=== PATIENT | female | born 1955 | race Caucasian/White ===

== ENCOUNTER 2022-01-25 13:41 | Emergency (ER) | payer OTHER ==
[2022-01-25] MEDS ORDERED: TORAdol 30 mg Injection IM ONE (14:08)
[2022-01-25] MEDS ORDERED: TORAdol 30 mg Injection ONE (14:11)
[2022-01-25] MEDS ORDERED: ZOFRAN ODT 4 MG PO ONE ×2 (14:40→15:40)
[2022-01-25] MEDS ORDERED: ZOFRAN ODT 4 MG ONE ×2 (14:41→15:40)
--- NOTE | 2022-01-25 15:13 | ERPHSYRPT ---
- History of Present Illness Source: patient Exam Limitations: no limitations Patient Subjective Stated Complaint: Pt has been going to PT for pain in her left shoulder and the pain has become to unbearable and PT sent her to the ER due to not being able to do the physical therapy, pt has been having pain since October Triage Nursing Assessment: Pt brought to the ER by her from PT, hypertensive, rates pain 10/10, decreased ROM, tearful, denies pain with palpat ation, reports having sudden pain without movement and also with movement, pulses normal, skin n/w/d, appears to be in significant pain Physician History: 66 yo wf w chronic L shoulder pain since 11/06 was at PT today and sent to ER because pain was unbearable. She was sent to PT by her orthopod because insurance refused MRI until PT completed. She denies chest pain and dyspnea. Pain worse w L arm movement. Occurred: other (Chronic) Method of Injury: unknown Quality: constant, aching Severity of Pain-Max: severe Severity of Pain-Current: severe Extremities Pain Location: shoulder: left Modifying Factors: Improves With: movement Associated Symptoms: No chest discomfort, No chest pain, No dyspnea, No fever, No jaw pain, No nausea, No neck pain, No sweating, No short of breath, No vomiting Allergies/Adverse Reactions: Iodinated Contrast Media Allergy (Verified 01/25/22 14:14) Penicillins Allergy (Verified 01/25/22 14:14) Home Medications: Amlodipine Besylate 2.5 mg PO DAILY 01/25/22 [History] Fenofibrate,Micronized [Fenofibrate] 54 mg PO DAILY 01/25/22 [History] Hydrocodone/Acetaminophen [Hydrocodone-Acetamin 10-325 mg] 1 tablet PO UD 01/25/22 [History] Levothyroxine Sodium 88 Mcg [Synthroid 88 Mcg] 88 mcg PO DAILY 01/25/22 [History] Omeprazole 20 mg PO DAILY 01/25/22 [History] Ropinirole HCl 4 mg PO DAILY 01/25/22 [History] hydroCHLOROthiazide [Hydrochlorothiazide] 12.5 mg PO DAILY 01/25/22 [History] Travel Risk - International Travel Have you traveled outside of the country in past 3 weeks: No - Coronavirus Screening Are you exhibiting any of the following symptoms?: No - Vaccine Status Have you recieved a Covid-19 vaccination: Yes Supervising Nurse: Moderna - Vaccination Dates Date of 2cond Vaccination (if applicable): 03/2021 - Review of Systems Constitutional: No Symptoms Eyes: No Symptoms Ears, Nose, & Throat: No Symptoms Respiratory: No Symptoms Cardiac: No Symptoms Abdominal/Gastrointestinal: No Symptoms Genitourinary Symptoms: No Symptoms Musculoskeletal: Arthralgias (L shoulder) Skin: No Symptoms Neurological: No Symptoms Psychological: No Symptoms Endocrine: No Symptoms Hematologic/Lymphatic: No Symptoms Immunological/Allergic: No Symptoms - Past Medical History Pertinent Past Medical History: Yes Neurological History: No Pertinent History Cardiac History: No Pertinent History, High Cholesterol Respiratory History: No Pertinent History Endocrine Medical History: Hypothyroidism Musculoskeletal History: No Pertinent History Other Medical History: graves disease, vascular spasms, restless leg syndrome - Past Surgical History Past Surgical History: Yes Gastrointestinal: Cholecystectomy Female Surgical History: Hysterectomy Other Surgical History: rt rotator cuff - Social History Smoking Status: Never smoker Exposure to second hand smoke: No Drug Use: none Patient Lives Alone: No Significant Family History: no pertinent family hx - Nursing Vital Signs Nursing Vital Signs: Initial Vital Signs Temperature 97.5 F 01/25/22 13:52 Pulse Rate 73 01/25/22 13:52 Blood Pressure 158/71 01/25/22 13:52 O2 Sat by Pulse Oximetry 96 01/25/22 13:52 Pain Scale Pain Intensity 10 Hypertensive - Physical Exam General Appearance: no apparent distress Eyes, Ears, Nose, Throat Exam: normal ENT inspection, TMs normal, pharynx normal, moist mucous membranes, tonsillar exudate Neck Exam: normal inspection, non-tender, supple, No Brudzinski, No Kernig's, No meningismus Cardiovascular/Respiratory Exam: normal breath sounds, regular rate/rhythm, heart sounds normal Abdominal Exam: non-tender, soft Back Exam: normal inspection, normal range of motion Shoulder Exam: bone tenderness (L shoulder TTP anteriorly and posteriorly/Pain w abduction and external rotation/Good radial pulse, distal sensation, and capillary return) Elbow/Forearm Exam: normal inspection Wrist Exam: normal inspection Hand Exam: normal inspection DTR - Upper Extremity Exam: bicep (R): 2+, bicep (L): 2+ Neuro/Tendon Exam: normal sensation, normal motor functions, normal tendon functions, responds to pain Mental Status Exam: alert, oriented x 3, cooperative Skin Exam: normal color, warm, dry SpO2 Interpretation: normal SpO2: 96 O2 Delivery: Room Air - Course Nursing assessment & vital signs reviewed: Yes EKG Interpreted by Me: RATE (NSR/R64/Normal QT-QTc/Low voltage/No acute ST segment changes) Ordered Tests: Active Orders 24 hr Category Date Time Status EKG-ER Only STAT Care 01/25/22 14:08 Completed TROPONIN Q3H Lab 01/25/22 14:05 Completed TROPONIN Q3H Lab 01/25/22 17:15 Ordered TROPONIN Q3H Lab 01/25/22 20:15 Ordered TROPONIN Q3H Lab 01/25/22 23:15 Ordered Medication Summary Discontinued Medications Generic Name Dose Route Start Last Admin Trade Name Freq PRN Reason Stop Dose Admin Hydromorphone HCl 1 mg 01/25/22 15:20 01/25/22 15:23 Hydromorphone 1 Mg/1ml Inj 1 Mg/Ml Syringe IM 01/25/22 15:21 1 mg STAT ONE Administration Hydromorphone HCl Confirm 01/25/22 15:20 Hydromorphone 1 Mg/1ml Inj 1 Mg/Ml Syringe Administered 01/25/22 15:21 Dose 1 mg .ROUTE .STK-MED ONE Ketorolac Tromethamine 30 mg 01/25/22 14:08 01/25/22 14:17 Ketorolac Tromethamine 30 Mg/Ml Inj IM 01/25/22 14:09 30 mg STAT ONE Administration Ketorolac Tromethamine Confirm 01/25/22 14:11 Ketorolac Tromethamine 30 Mg/Ml Inj Administered 01/25/22 14:12 Dose 30 mg .ROUTE .STK-MED ONE Ondansetron HCl 4 mg 01/25/22 14:40 01/25/22 14:41 Zofran 4 Mg/Udtablet Orally Disintegrating PO 01/25/22 14:41 4 mg STAT ONE Administration Ondansetron HCl Confirm 01/25/22 14:41 Zofran 4 Mg/Udtablet Orally Disintegrating Administered 01/25/22 14:42 Dose 4 mg .ROUTE .STK-MED ONE Ondansetron HCl 4 mg 01/25/22 15:40 01/25/22 15:42 Zofran 4 Mg/Udtablet Orally Disintegrating PO 01/25/22 15:41 4 mg STAT ONE Administration Ondansetron HCl Confirm 01/25/22 15:40 Zofran 4 Mg/Udtablet Orally Disintegrating Administered 01/25/22 15:41 Dose 4 mg .ROUTE .STK-MED ONE Lab/Rad Data: Laboratory Results 01/25/22 Range/Units 14:05 Troponin I < 0.012 (0.000-0.034) ng/mL - Progress Progress: improved Progress Note: 30mg IM Toradol wo relief Zofran 4mg ODT 1mg IM Dilaudid w mild relief Zofran 4mg odt 01/25/22 16:08 01/25/22 16:09 Counseled pt/family regarding: lab results, diagnosis, need for follow-up - Departure Departure Disposition: Home Clinical Impression: Rotator cuff arthropathy of left shoulder Condition: Stable Critical Care Time: No Referrals: MORIS CARRINGTON [Primary Care Provider] - Follow up/PCP as directed Instructions: Shoulder Tendinopathy (DC) Additional Instructions: Follow up with your orthopedic surgeon on Friday Continue with hydrocodone at home Return to ER for increasing pain, chest pain, or shortness of breath
[2022-01-25] MEDS ORDERED: Hydromorphone 1 mg/ml Injection IM ONE (15:20)
[2022-01-25] MEDS ORDERED: Hydromorphone 1 mg/ml Injection ONE (15:20)
[2022-01-25 16:27] VITALS: BP 162/72; PULSE 76
[2022-01-25 16:39] VITALS: O2SAT 96
== END 2022-01-25 16:27 | disposition home or self-care (01) ==
LOC: ED 13:41
DX: M75.121 Complete rotator cuff tear or rupture of right shoulder, not specified as traumatic (principal); G89.29 Other chronic pain; E78.5 Hyperlipidemia, unspecified; Z79.891 Long term (current) use of opiate analgesic; Z79.899 Other long term (current) drug therapy
CPT/HCPCS: 36415; 84484; 93005; 96372; 99284; J1170; J1885; Q0162

== ENCOUNTER 2023-12-08 12:58 | Emergency (ER) | payer MEDICARE, OTHER ==
--- NOTE | 2023-12-08 13:01 | ERPHSYRPT ---
- History of Present Illness Time Seen by Provider: 12/08/23 13:00 Source: patient, EMS Exam Limitations: no limitations Physician History: This is a morbidly obese 68-year-old white female patient who has chronic insomnia and has not been eating or drinking well recently. She was in the shower and "passed out" hitting her head. She had brief loss of consciousness. Paramedics brought the patient into the emergency department where she is now awake alert and oriented x 4. She feels weak. She denies chest pain. She denies shortness of breath. She has no abdominal pain. She has no extremity pain. Patient has a history of hypertension, dystonic movements, ga stroesophageal reflux disease and hypothyroidism Timing/Duration: today Severity: mild (Moderate) Character of Deficits: none Deficits: no difficulties Baseline/Normal Cognition: alert oriented x 3 Current Cognition: alert oriented x 3 Baseline Gait: walks w/o assistance Associated Symptoms: weakness, insomnia Allergies/Adverse Reactions: Iodinated Contrast Media Allergy (Verified 01/25/22 14:14) Penicillins Allergy (Verified 01/25/22 14:14) Home Medications: Amlodipine Besylate 2.5 mg PO DAILY 01/25/22 [History] Fenofibrate,Micronized [Fenofibrate] 54 mg PO DAILY 01/25/22 [History] Hydrocodone/Acetaminophen [Hydrocodone-Acetamin 10-325 mg] 1 tablet PO UD 01/25/22 [History] Levothyroxine Sodium 88 Mcg [Synthroid 88 Mcg] 88 mcg PO DAILY 01/25/22 [History] Omeprazole 20 mg PO DAILY 01/25/22 [History] Ropinirole HCl 4 mg PO DAILY 01/25/22 [History] hydroCHLOROthiazide [Hydrochlorothiazide] 12.5 mg PO DAILY 01/25/22 [History] Travel Risk - International Travel Have you traveled outside of the country in past 3 weeks: No - Coronavirus Screening Are you exhibiting any of the following symptoms?: No Close contact with a COVID-19 positive Pt in past 14-21 Days: No - Vaccine Status Have you recieved a Covid-19 vaccination: Yes Program Attendant: Moderna - Vaccination Dates Date of 2cond Vaccination (if applicable): 03/2021 - Review of Systems Constitutional: Weakness Eyes: No Symptoms Ears, Nose, & Throat: No Symptoms Respiratory: No Symptoms Cardiac: No Symptoms Abdominal/Gastrointestinal: No Symptoms Genitourinary Symptoms: No Symptoms Musculoskeletal: No Symptoms Skin: No Symptoms Neurological: Headache Psychological: No Symptoms Endocrine: No Symptoms Hematologic/Lymphatic: No Symptoms Immunological/Allergic: No Symptoms All Other Systems: Reviewed and Negative - Past Medical History Pertinent Past Medical History: Yes Neurological History: Migraines Cardiac History: Other Respiratory History: Bronchitis Endocrine Medical History: Hypothyroidism Musculoskeletal History: Other Other Medical History: 1 migraine every 1-2 months, vascular spasms, cardiac catheterization, various broken fingers and toes, nasal fractures, cholecystectomy, hysterectomy, L knee scope - Past Surgical History Past Surgical History: Yes Gastrointestinal: Cholecystectomy Female Surgical History: Hysterectomy Other Surgical History: rt rotator cuff - Social History Smoking Status: Never smoker Exposure to second hand smoke: No Drug Use: none Patient Lives Alone: No Significant Family History: no pertinent family hx - Nursing Vital Signs Nursing Vital Signs: Initial Vital Signs O2 Sat by Pulse Oximetry 97 12/08/23 12:59 Pain Scale Pain Intensity 8 - [place] Coma Scale Best Eye Response (Geoff): (4) open spontaneously Best Verbal Response (Geoff): (5) oriented Best Motor Response (Geoff): (6) obeys commands Geoff Total: 15 - Physical Exam General Appearance: no apparent distress, alert, anxiety, obese Eye Exam: bilateral eye: normal inspection, PERRL, EOMI Ears, Nose, Throat Exam: normal ENT inspection, moist mucous membranes Neck Exam: normal inspection, non-tender, supple, full range of motion Respiratory: normal breath sounds, lungs clear, airway intact, No chest te nderness, No respiratory distress Cardiovascular: regular rate/rhythm, normal heart sounds, normal peripheral pulses Gastrointestinal: soft, normal bowel sounds, No tenderness Pelvic Exam: not done Rectal Exam: not done Back Exam: normal inspection, normal range of motion, No CVA tenderness Extremity Exam: normal inspection, normal range of motion, pelvis stable Mental Status: alert, oriented x 3, 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 Exam: normal hearing, normal speech, PERRL, tongue midline Coordination/Gait: normal finger to nose Motor/Sensory: no motor deficit, no sensory deficit Skin Exam: normal color, warm, dry SpO2 Interpretation: normal O2 Delivery: Room Air - Course Nursing assessment & vital signs reviewed: Yes EKG Interpreted by Me: RATE (63), Sinus Rhythm, Left Lykens Deviation, NORMAL INTERVALS, NORMAL QRS, Other (No acute ischemic changes on today's twelve-lead EKG.) Ordered Tests: Active Orders 24 hr Category Date Time Status Nutrition Services Associate STAT Care 12/08/23 13:14 Active EKG-ER Only STAT Care 12/08/23 13:14 Active IV Insertion STAT Care 12/08/23 13:14 Active Pulse Oximetry (ED) STAT Care 12/08/23 13:14 Active HEAD WITHOUT CONTRAST [CT] Stat Exams 12/08/23 13:17 Completed CBC W DIFF Stat Lab 12/08/23 13:11 Completed CMP Stat Lab 12/08/23 13:11 Completed NT PRO BNPII Stat Lab 12/08/23 13:11 Completed TROPONIN Q4H Lab 12/08/23 13:11 Completed TROPONIN Q4H Lab 12/08/23 17:15 Ordered TROPONIN Q4H Lab 12/08/23 21:15 Ordered TSH [TSH, 3RD Generation] Stat Lab 12/08/23 13:35 Completed UA W/RFX UR CULTURE Stat Lab 12/08/23 14:40 Completed Medication Summary Discontinued Medications Generic Name Dose Route Start Last Admin Trade Name Jamesq PRN Reason Stop Dose Admin Potassium Chloride 20 meq 12/08/23 14:00 12/08/23 14:09 Potassium Chloride Tab 10 Meq Tab PO 12/08/23 14:01 20 meq STAT ONE Administration Potassium Chloride Confirm 12/08/23 14:08 Potassium Chloride Tab 10 Meq Tab Administered 12/08/23 14:09 Dose 20 meq .ROUTE .STK-MED ONE Prochlorperazine Edisylate 5 mg 12/08/23 13:43 12/08/23 14:10 Prochlorperazine Edisylate 10 Mg/2 Ml Vial IV 12/08/23 13:44 5 mg STAT ONE Administration Prochlorperazine Edisylate Confirm 12/08/23 14:08 Prochlorperazine Edisylate 10 Mg/2 Ml Vial Administered 12/08/23 14:09 Dose 10 mg .ROUTE .STK-MED ONE Lab/Rad Data: Laboratory Result Diagrams 12/08/23 13:11 12/08/23 13:11 Laboratory Results 12/08/23 12/08/23 12/08/23 Range/Units Unknown 14:40 13:35 WBC (4.0-10.5) x10^3/uL RBC (4.1-5.4) x10^6/uL Hgb (12.0-16.0) g/dL Hct (35-47) % MCV (78-100) fL MCH (26-32) pg MCHC (32-36) g/dL RDW (11.5-14.0) % Plt Count (150-450) x10^3/uL MPV (7.5-11.0) fL Gran % (36.0-66.0) % Immature Gran % (Auto) (0.00-0.4) % Nucleat RBC Rel Count (0.00-0.1) % Eos # (Auto) (0-0.5) x10^3/uL Immature Gran # (Auto) (0.00-0.03) x10^3u/L Absolute Lymphs (auto) (1.0-4.6) x10^3/uL Absolute Monos (auto) (0.0-1.3) x10^3/uL Absolute Nucleated RBC (0.00-0.01) x10^3u/L Lymphocytes % (24.0-44.0) % Monocytes % (0.0-12.0) % Eosinophils % (0.00-5.0) % Basophils % (0.0-0.4) % Absolute Granulocytes (1.4-6.9) x10^3/uL Basophils # (0-0.4) x10^3/uL Sodium (137-145) mmol/L Potassium (3.5-5.1) mmol/L Chloride (98-107) mmol/L Carbon Dioxide (22-30) mmol/L Anion Gap (5-15) MEQ/L BUN (7-17) mg/dL Creatinine (0.52-1.04) mg/dL Estimated GFR ML/MIN Glucose (74-106) mg/dL Calcium (8.4-10.2) mg/dL Total Bilirubin (0.2-1.3) mg/dL AST (14-36) U/L ALT (0-35) U/L Alkaline Phosphatase (38-126) U/L Troponin I (0.000-0.034) ng/mL NT-Pro-B Natriuret Pep (<300) pg/mL Serum Total Protein (6.3-8.2) g/dL Albumin (3.5-5.0) g/dL Free T4 1.16 (0.78-2.19) ng/dL TSH 3rd Generation 7.990 H (0.47-4.68) mIU/L Urine Color Yellow (Yellow) Urine Appearance Cloudy A (Clear) Urine pH 8.0 (4.6-8.0) Ur Specific [place] 1.020 (1.005-1.030) Urine Protein Trace A (Negative) Urine Glucose (UA) Negative (Negative) mg/dL Urine Ketones Negative (Negative) Urine Blood Negative (Negative) Urine Nitrite Negative (Negative) Urine Bilirubin Negative (Negative) Urine Urobilinogen 0.2 (0.2) mg/dL Ur Leukocyte Esterase Negative (Negative) U Hyaline Cast (Auto) NONE SEEN (0-2) /LPF Urine Microscopic RBC 0-2 (0-5) /HPF Urine Microscopic WBC 3-5 (0-5) /HPF Ur Epithelial Cells Rare (None Seen) /HPF Urine Bacteria None Seen (None Seen) /HPF Urine Culture Reflexed NO (NO) Influenza Type A Ag (NEGATIVE) Influenza Type B Ag (NEGATIVE) RSV (PCR) (NEGATIVE) SARS-CoV-2 (PCR) (NEGATIVE) 12/08/23 12/08/23 12/08/23 Range/Units 13:11 13:11 13:11 WBC (4.0-10.5) x10^3/uL RBC (4.1-5.4) x10^6/uL Hgb (12.0-16.0) g/dL Hct (35-47) % MCV (78-100) fL MCH (26-32) pg MCHC (32-36) g/dL RDW (11.5-14.0) % Plt Count (150-450) x10^3/uL MPV (7.5-11.0) fL Gran % (36.0-66.0) % Immature Gran % (Auto) (0.00-0.4) % Nucleat RBC Rel Count (0.00-0.1) % Eos # (Auto) (0-0.5) x10^3/uL Immature Gran # (Auto) (0.00-0.03) x10^3u/L Absolute Lymphs (auto) (1.0-4.6) x10^3/uL Absolute Monos (auto) (0.0-1.3) x10^3/uL Absolute Nucleated RBC (0.00-0.01) x10^3u/L Lymphocytes % (24.0-44.0) % Monocytes % (0.0-12.0) % Eosinophils % (0.00-5.0) % Basophils % (0.0-0.4) % Absolute Granulocytes (1.4-6.9) x10^3/uL Basophils # (0-0.4) x10^3/uL Sodium 137 (137-145) mmol/L Potassium 3.0 L* (3.5-5.1) mmol/L Chloride 99 (98-107) mmol/L Carbon Dioxide 30 (22-30) mmol/L Anion Gap 10.7 (5-15) MEQ/L BUN 16 (7-17) mg/dL Creatinine 0.82 (0.52-1.04) mg/dL Estimated GFR 78.8 ML/MIN Glucose 101 (74-106) mg/dL Calcium 9.6 (8.4-10.2) mg/dL Total Bilirubin 0.70 (0.2-1.3) mg/dL AST 31 (14-36) U/L ALT 13 (0-35) U/L Alkaline Phosphatase 68 (38-126) U/L Troponin I < 0.012 (0.000-0.034) ng/mL NT-Pro-B Natriuret Pep 65.8 (<300) pg/mL Serum Total Protein 7.7 (6.3-8.2) g/dL Albumin 4.5 (3.5-5.0) g/dL Free T4 (0.78-2.19) ng/dL TSH 3rd Generation (0.47-4.68) mIU/L Urine Color (Yellow) Urine Appearance (Clear) Urine pH (4.6-8.0) Ur Specific [place] (1.005-1.030) Urine Protein (Negative) Urine Glucose (UA) (Negative) mg/dL Urine Ketones (Negative) Urine Blood (Negative) Urine Nitrite (Negative) Urine Bilirubin (Negative) Urine Urobilinogen (0.2) mg/dL Ur Leukocyte Esterase (Negative) U Hyaline Cast (Auto) (0-2) /LPF Urine Microscopic RBC (0-5) /HPF Urine Microscopic WBC (0-5) /HPF Ur Epithelial Cells (None Seen) /HPF Urine Bacteria (None Seen) /HPF Urine Culture Reflexed (NO) Influenza Type A Ag NEGATIVE (NEGATIVE) Influenza Type B Ag NEGATIVE (NEGATIVE) RSV (PCR) NEGATIVE (NEGATIVE) SARS-CoV-2 (PCR) NEGATIVE (NEGATIVE) 12/08/23 Range/Units 13:11 WBC 6.7 (4.0-10.5) x10^3/uL RBC 4.57 (4.1-5.4) x10^6/uL Hgb 13.8 (12.0-16.0) g/dL Hct 41.6 (35-47) % MCV 91.0 (78-100) fL MCH 30.2 (26-32) pg MCHC 33.2 (32-36) g/dL RDW 13.2 (11.5-14.0) % Plt Count 320 (150-450) x10^3/uL MPV 9.0 (7.5-11.0) fL Gran % 55.9 (36.0-66.0) % Immature Gran % (Auto) 1.1 H (0.00-0.4) % Nucleat RBC Rel Count 0.0 (0.00-0.1) % Eos # (Auto) 0.28 (0-0.5) x10^3/uL Immature Gran # (Auto) 0.07 H (0.00-0.03) x10^3u/L Absolute Lymphs (auto) 1.79 (1.0-4.6) x10^3/uL Absolute Monos (auto) 0.70 (0.0-1.3) x10^3/uL Absolute Nucleated RBC 0.00 (0.00-0.01) x10^3u/L Lymphocytes % 26.9 (24.0-44.0) % Monocytes % 10.5 (0.0-12.0) % Eosinophils % 4.2 (0.00-5.0) % Basophils % 1.4 (0.0-0.4) % Absolute Granulocytes 3.73 (1.4-6.9) x10^3/uL Basophils # 0.09 (0-0.4) x10^3/uL Sodium (137-145) mmol/L Potassium (3.5-5.1) mmol/L Chloride (98-107) mmol/L Carbon Dioxide (22-30) mmol/L Anion Gap (5-15) MEQ/L BUN (7-17) mg/dL Creatinine (0.52-1.04) mg/dL Estimated GFR ML/MIN Glucose (74-106) mg/dL Calcium (8.4-10.2) mg/dL Total Bilirubin (0.2-1.3) mg/dL AST (14-36) U/L ALT (0-35) U/L Alkaline Phosphatase (38-126) U/L Troponin I (0.000-0.034) ng/mL NT-Pro-B Natriuret Pep (<300) pg/mL Serum Total Protein (6.3-8.2) g/dL Albumin (3.5-5.0) g/dL Free T4 (0.78-2.19) ng/dL TSH 3rd Generation (0.47-4.68) mIU/L Urine Color (Yellow) Urine Appearance (Clear) Urine pH (4.6-8.0) Ur Specific [place] (1.005-1.030) Urine Protein (Negative) Urine Glucose (UA) (Negative) mg/dL Urine Ketones (Negative) Urine Blood (Negative) Urine Nitrite (Negative) Urine Bilirubin (Negative) Urine Urobilinogen (0.2) mg/dL Ur Leukocyte Esterase (Negative) U Hyaline Cast (Auto) (0-2) /LPF Urine Microscopic RBC (0-5) /HPF Urine Microscopic WBC (0-5) /HPF Ur Epithelial Cells (None Seen) /HPF Urine Bacteria (None Seen) /HPF Urine Culture Reflexed (NO) Influenza Type A Ag (NEGATIVE) Influenza Type B Ag (NEGATIVE) RSV (PCR) (NEGATIVE) SARS-CoV-2 (PCR) (NEGATIVE) - Progress Progress: improved, re-examined Progress Note: 12/08/23 13:39 This patient's medical issue is 1 of moderate complexity. The level of complexity in the workup performed is based on review of the patient's past medical history, review of the patient's medication list, reviewed patient's drug allergy list, history present illness and physical findings on examination. The workup in this patient includes placement of intravenous line, twelve-lead EKG, CBC, CMP, troponin level, BNP, CT scan of the head and urinalysis. 12/08/23 15:15 CT scan of the head without contrast was interpreted by the radiologist and I reviewed the impression. The impression is normal CT scan of the head without contrast. 12/08/23 15:16 I interpreted the patient's laboratory data results. The patient has a low potassium 3.0. We provided her a supplement of 20 mEq potassium orally here in the emergency department. The remainder of her laboratory results are negative for any acute, emergent findings. We will send a prescription remotely to her pharmacy for her to take a couple days of potassium supplementation. Patient was able to ambulate well without any dizziness or difficulty to the restroom and back to her room. Counseled pt/family regarding: lab results, diagnosis, rad results Medical Desision Making - Independent Historian Additional History obtained from: Spouse - Diagnostic Testing Diagnostic test were ordered, analyzed, and reviewed by me: Yes Radiological Interpretation: Reviewed by me, Teleradiologist Report - Risk of complications The pt has a mod risk of morbidity or mortality based on: Need for prescription drug management - Departure Departure Disposition: Home Clinical Impression: Episode of syncope, Insomnia, Hypokalemia Condition: Stable Critical Care Time: No Referrals: IAN CUELLO NP [Primary Care Provider] - Follow up/PCP as directed Additional Instructions: Drink plenty of clear liquids before advancing your diet. Take your medications as prescribed. Follow-up with your primary care provider today, by phone, to make arrangements for further evaluation and management. Prescriptions: Potassium Chloride Tab* [Klor Con] 10 meq PO BID #4 tab
[2023-12-08 13:23] VITALS: TEMP 97
[2023-12-08 13:23] LABS: Absolute Neutrophil Ct (ANC) 3.73 x10^3/uL (1.4-6.9); BASOPHIL % 1.4 % (0.0-0.4); Basophil (Absolute #) 0.09 x10^3/uL (0-0.4); Eosinophil % 4.2 % (0.00-5.0); Eosinophil (Absolute #) 0.28 x10^3/uL (0-0.5); Hematocrit 41.6 % (35-47); Hemoglobin 13.8 g/dL (12.0-16.0); IMMATURE GRAN # 0.07 x10^3u/L (0.00-0.03); IMMATURE GRAN % 1.1 % (0.00-0.4); Lymphocyte (Absolute #) 1.79 x10^3/uL (1.0-4.6); Lymphocytes % 26.9 % (24.0-44.0); Mean Corpuscular Hemoglobin 30.2 pg (26-32); Mean Corpuscular Hgb Concent. 33.2 g/dL (32-36); Monocytes % 10.5 % (0.0-12.0); Neutrophil % 55.9 % (36.0-66.0); Platelet Count 320 x10^3/uL (150-450); Red Blood Count 4.57 x10^6/uL (4.1-5.4); Red Cell Distribution Width 13.2 % (11.5-14.0); White Blood Count 6.7 x10^3/uL (4.0-10.5)
[2023-12-08] MEDS ORDERED: Compazine 10 MG/2 ML IV ONE (13:43)
[2023-12-08 13:46] LABS: ALBUMIN 4.5 g/dL (3.5-5.0); ANION GAP 10.7 MEQ/L (5-15); BILIRUBIN,TOTAL 0.7 mg/dL (0.2-1.3); Calcium 9.6 mg/dL (8.4-10.2); Creatinine 1 0.82 mg/dL (0.52-1.04); EST GLOMERULAR FILTRATION RATE 78.8 ML/MIN; NT PRO BNPII 65.8 pg/mL (<300); Total Protein 7.7 g/dL (6.3-8.2)
[2023-12-08] MEDS ORDERED: Klor Con PO ONE (14:00)
[2023-12-08 14:02] LABS: INFLUENZA A NEGATIVE (NEGATIVE); INFLUENZA B NEGATIVE (NEGATIVE); RESPIRATORY SYNCTIAL VIRUS NEGATIVE (NEGATIVE); SARS-CoV-2 Xpert Express NEGATIVE (NEGATIVE)
[2023-12-08] MEDS ORDERED: Klor Con ONE (14:08)
[2023-12-08] MEDS ORDERED: Compazine 10 MG/2 ML ONE (14:08)
--- NOTE | 2023-12-08 14:15 | XRAY ---
Indication: Syncope. Left posterior pain and knot following fall. Multiple contiguous axial images obtained through the head without contrast. Comparison: None Normal appearing brain parenchyma, ventricles, and bony calvarium for patient's age. Visualized paranasal sinuses and mastoid air cells are clear. Impression: Normal CT head without contrast exam.
[2023-12-08 15:05] LABS: Appearance Cloudy (Clear); Bacteria None Seen /HPF (None Seen); Bilirubin Negative (Negative); Blood Negative (Negative); Epithelial Cells Rare /HPF (None Seen); Glucose, Urine Negative (Negative); Hyaline Casts NONE SEEN /LPF (0-2); Ketones Negative (Negative); Leukocyte Esterase Negative (Negative); Nitrite Negative (Negative); Protein,Urine Dip Trace (Negative); RBC 0-2 /HPF (0-5); Urobilinogen 0.2 mg/dL (0.2)
[2023-12-08 15:08] LABS: ADD URINE CULTURE? NO (NO)
[2023-12-08 15:27] VITALS: BP 119/63; PULSE 65; RESP 17; O2SAT 91
== END 2023-12-08 13:50 | disposition home or self-care (01) ==
LOC: ED 12:58
DX: R55 Syncope and collapse (principal); G47.00 Insomnia, unspecified; E87.6 Hypokalemia; R53.1 Weakness; I10 Essential (primary) hypertension; Z79.899 Other long term (current) drug therapy; Z20.828 Contact with and (suspected) exposure to other viral communicable diseases
CPT/HCPCS: 0241U; 36000; 36415; 70450; 80053; 81001; 83880; 84439; 84443; 84484; 85025; 93005; 93041; 94760; 96374; 99284; A9270-GY

== ENCOUNTER 2024-05-20 08:38 | Emergency (ER) | payer MEDICARE, OTHER ==
[2024-05-20 08:56] VITALS: TEMP 96.1
[2024-05-20] MEDS ORDERED: ZOFRAN ODT 4 MG ONE (09:02)
[2024-05-20] MEDS: ZOFRAN ODT 4 MG PO ONE (09:16)
[2024-05-20] MEDS ORDERED: Zofran 4 MG/2 ML VIAL ONE (10:07)
[2024-05-20] MEDS ORDERED: MORPHINE SULFATE 4 MG INJ ONE (10:07)
[2024-05-20] MEDS ORDERED: Sodium Chloride 0.9% 500 ML 500 ML IV ONE ×3 (10:07→14:06)
[2024-05-20] MEDS: Zofran 4 MG/2 ML VIAL IV ONE (10:08)
[2024-05-20] MEDS: MORPHINE SULFATE 4 MG INJ IV ONE (10:08)
[2024-05-20] MEDS: Sodium Chloride 0.9% 500 ML 500 ML IV ONE ×3 (10:08→14:39)
[2024-05-20 10:23] LABS: Absolute Neutrophil Ct (ANC) 6.41 x10^3/uL (1.56-6.13); BASOPHIL % 0.4 % (0.1-1.2); Basophil (Absolute #) 0.03 x10^3/uL (0.01-0.08); Eosinophil % 0.1 % (0.7-5.8); Eosinophil (Absolute #) 0.01 x10^3/uL (0.04-0.36); Hematocrit 48.9 % (34.1-44.9); Hemoglobin 16.5 g/dL (11.2-15.7); IMMATURE GRAN # 0.02 x10^3u/L (0.001-0.031); IMMATURE GRAN % 0.3 % (0.001-0.429); Lymphocyte (Absolute #) 0.67 x10^3/uL (1.18-3.74); Lymphocytes % 9.3 % (19.3-51.7); Mean Cell Volume 91.2 fL (79.4-94.8); Mean Corpuscular Hemoglobin 30.8 pg (25.6-32.2); Mean Corpuscular Hgb Concent. 33.7 g/dL (32.2-35.5); Mean Platelet Volume 8.7 fL (9.4-12.3); Monocytes % 1.4 % (4.7-12.5); Neutrophil % 88.5 % (34.0-71.1); Platelet Count 346 x10^3/uL (182-369); Red Blood Count 5.36 x10^6/uL (3.93-5.22); Red Cell Distribution Width 13.2 % (11.7-14.4); White Blood Count 7.2 x10^3/uL (3.98-10.04)
[2024-05-20 10:36] LABS: ALBUMIN 4.6 g/dL (3.5-5.0); ANION GAP 15.4 MEQ/L (5-15); Calcium 10.4 mg/dL (8.4-10.2); Creatinine 1 0.97 mg/dL (0.52-1.04); EST GLOMERULAR FILTRATION RATE 64.5 ML/MIN; Total Protein 7.4 g/dL (6.3-8.2)
[2024-05-20 10:39] LABS: Potassium 1.9 mmol/L (3.5-5.1)
[2024-05-20] MEDS ORDERED: Klor Con ONE (11:04)
[2024-05-20] MEDS ORDERED: MAGNESIUM SULF 2 G/50 ML BAG 2 GM/50 ML PIGGYBACK IV ONE (11:05)
[2024-05-20] MEDS ORDERED: POTASSIUM CHLORIDE 20 mEq IN WATER 100ML 100 ML IV ONE ×2 (11:05→13:11)
[2024-05-20] MEDS: MAGNESIUM SULF 2 G/50 ML BAG 2 GM/50 ML PIGGYBACK IV ONE (11:06)
[2024-05-20] MEDS: POTASSIUM CHLORIDE 20 mEq IN WATER 100ML 20 MEQ/100 ML BAG IV SCH (11:06)
[2024-05-20] MEDS: Klor Con PO ONE (11:06)
--- NOTE | 2024-05-20 11:54 | XRAY ---
CLINICAL HISTORY: Generalized abdominal pain, constip COMPARISON: None. TECHNIQUE: A CT scan of the abdomen and pelvis was performed without IV contrast. Coronal and sagittal reconstructive images were also obtained. One of the following dose reduction techniques was utilized for this exam: Automated exposure control, adjustment of the mA and/or kV according to patient size, and use of iterative reconstruction. FINDINGS: Free intraperitoneal gases were detected suggesting a perforated bowel loop. Free fecal material was noted at the rectovesical pouch. There are fat stranding and multiple diverticula, suspicious of diverticulitis. The distal sigmoid and descending colon show mild diffuse wall thickening. Free fluid was noted at subhepatic recess. Multiple colonic diverticula were noted from the cecum to the sigmoid colon. The liver is normal in size. No focal or diffuse parenchymal abnormality. The portal vein, intrahepatic biliary radicals, and the bile ducts are normal. The spleen, pancreas, and adrenal glands are unremarkable. The kidneys are unremarkable. They are normal in size and shape. No calculi or hydronephrosis. The gallbladder is normal. No pericholecystic collection or radio-dense calculi in the gall bladder. A small hiatus hernia was noted. There is no evidence of significant enlargement of the mesenteric or retroperitoneal lymph nodes. The urinary bladder is unremarkable. The pelvic vasculature is unremarkable. No evidence of pelvic lymphadenopathy. The Appendix appears unremarkable. The lumbar spine shows degenerative spondylosis with kyphotic deformity. No lytic or sclerotic bone lesions. Free lung bases. IMPRESSION: 1. Diffuse colonic diverticular disease with evidence of diverticulitis at the sigmoid level, associated pneumoperitonium, and fluid suggesting perforated diverticulitis. 2. Suspicious of free fecal material at the rectovesical pouch, no fistula detected. 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 Anthony Crawford. Electronically Signed by: Evelyn Kim MD. (05/20/2024 11:51:16 EDT)
--- NOTE | 2024-05-20 12:26 | ERPHSYRPT ---
- History of Present Illness Time Seen by Provider: 05/20/24 08:57 Historian: patient, EMS Exam Limitations: no limitations Patient Subjective Stated Complaint: abdominal pain, constipation Triage Nursing Assessment: pt to ED via EMS c/o abdominal pain and cramping, nausea, and constipation. LBM Friday. last PO was last night for dinner. no emesis. bowel sounds hypoactive in all quads. abd firm and nontender. rates 10/10 cramping pain in lower abd that has radiated up to epigastric area. Physician History: 68 years old female with history of hypertension, hypothyroidism, diverticulitis in the past presented in the ER with generalized abdominal pain with cramping since 5 AM. Patient reports she does not have a bowel movement for the last 5 days, took some laxative last night and this morning started cramping. Has nausea and dry heaving without vomiting. Pain is moderate intensity more in the lower abdomen now with no significant aggravating or relieving factors. She does not have any bowel movement despite trying since morning. No fever or chills reported. Allergies/Adverse Reactions: Iodinated Contrast Media Allergy (Verified 05/20/24 08:41) Penicillins Allergy (Verified 05/20/24 08:41) Home Medications: Amlodipine Besylate 2.5 mg PO DAILY 01/25/22 [History] Fenofibrate,Micronized [Fenofibrate] 54 mg PO DAILY 01/25/22 [History] Levothyroxine Sodium 88 Mcg [Synthroid 88 Mcg] 88 mcg PO DAILY 01/25/22 [History] Ropinirole HCl 4 mg PO DAILY 01/25/22 [History] hydroCHLOROthiazide [Hydrochlorothiazide] 12.5 mg PO DAILY 01/25/22 [History] Amitriptyline HCl 50 mg PO DAILY 05/11/24 [History] Aspirin [Low Dose Aspirin EC] 81 mg PO DAILY 05/11/24 [History] Cetirizine HCl [Allergy] 10 mg PO DAILY 05/11/24 [History] Lansoprazole 30 mg PO DAILY 05/11/24 [History] Topiramate 50 mg PO DAILY 05/11/24 [History] Hx Tetanus, Diphtheria Vaccination/Date Given: Yes Hx Influenza Vaccination/Date Given: Yes Hx Pneumococcal Vaccination/Date Given: No Travel Risk - International Travel Have you traveled outside of the country in past 3 weeks: No - Emerging Infectious Disease Are you exhibiting symptoms associated with any current EIDs: Yes Symptoms: Abdominal Pain - Review of Systems Constitutional: No Symptoms Eyes: No Symptoms Ears, Nose, & Throat: No Symptoms Respiratory: No Symptoms Cardiac: No Symptoms Abdominal/Gastrointestinal: Abdominal Pain, Nausea, Constipation Genitourinary Symptoms: No Symptoms Musculoskeletal: Arthralgias Skin: No Symptoms Neurological: No Symptoms Hematologic/Lymphatic: No Symptoms Immunological/Allergic: No Symptoms - Past Medical History Pertinent Past Medical History: Yes Neurological History: Migraines ENT History: No Pertinent History Cardiac History: Hypertension, Other Respiratory History: Bronchitis Endocrine Medical History: Hypothyroidism Musculoskeletal History: Other Other Medical History: 1 migraine every 1-2 months, vascular spasms, cardiac cat heterization, various broken fingers and toes, nasal fractures, cholecystectomy, hysterectomy, L knee scope - Past Surgical History Past Surgical History: Yes Cardiac: Cardiac Catheterization Gastrointestinal: Cholecystectomy Musculoskeletal: Orthopedic Surgery Female Surgical History: Hysterectomy Other Surgical History: rt rotator cuffx2. knee scope Significant Family History: no pertinent family hx - Social History Smoking Status: Never smoker How long have you smoked: 30 Exposure to second hand smoke: No Drug Use: none Patient Lives Alone: No - Social Determinants of Health Will the patient participate in the screening: Yes Do you worry about a steady place to live?: No Do you have any problems with any of the following?: No known problems In the past 12 months,have you had to go without utilities?: No Transportation Issues: No Has anyone in your support network made you feel unsafe?: No Have you or anyone in your house had to go without enough: No - Nursing Vital Signs Nursing Vital Signs: Initial Vital Signs Temperature 96.1 F 05/20/24 08:43 Pulse Rate 66 05/20/24 08:43 Respiratory Rate 22 05/20/24 08:43 Blood Pressure 125/59 05/20/24 08:43 O2 Sat by Pulse Oximetry 98 05/20/24 08:43 Pain Scale Pain Intensity 10 - Physical Exam General Appearance: no apparent distress, alert Eye Exam: PERRL/EOMI Ears, Nose, Throat Exam: normal ENT inspection Neck Exam: normal inspection, full range of motion Respiratory Exam: normal breath sounds, lungs clear Cardiovascular Exam: regular rate/rhythm, normal heart sounds Gastrointestinal/Abdomen Exam: soft, tenderness (Generalized more in the lower abdomen), No normal bowel sounds (Hypoactive bowel sounds) Back Exam: normal inspection, normal range of motion Extremity Exam: normal inspection, normal range of motion Neurologic Exam: alert, oriented x 3, cooperative Skin Exam: normal color SpO2 Interpretation: normal SpO2: 96 O2 Delivery: Room Air Procedures - Central Line Time Of Procedure: 14:50 Timeout: Performed Central Line Lumen: triple Lumen Size: 7 Romansh Central Line Procedure: chlorahexadine prep, sterile drapes applied, sterile dressing applied, Seldinger Technique Central Line Postion: internal jugular (R) Anesthesia: 1% Lidocaine cc's of anesthesia: 3 Ultrasound Guided Placement: Yes Complications: none Central Line Post Position: sutured, good blood return, position confirmed w/ CXR, chest x-ray ordered - Course EKG Interpreted by Me: RATE ([id number]), Sinus Tach, Right [place] Deviation, prolonged QT interval, Non-specific ST Changes Ordered Tests: Active Orders 24 hr Category Date Time Status IV Insertion STAT Care 05/20/24 09:08 Completed NPO (ED) STAT Care 05/20/24 09:08 Completed ABDOMEN AND PELVIS W/0 CONTRAS [CT] Stat Exams 05/20/24 09:08 Completed CHEST 1 VIEW (PORTABLE) Stat Exams 05/20/24 14:57 Completed CHEST 1 VIEW (PORTABLE) Stat Exams 05/20/24 14:57 Completed CBC W DIFF Stat Lab 05/20/24 10:18 Completed CMP Stat Lab 05/20/24 10:18 Completed CULTURE,URINE Stat Lab 05/20/24 12:17 Received LIPASE Stat Lab 05/20/24 10:18 Completed Lactic Acid Stat Lab 05/20/24 13:25 Completed MG [MAGNESIUM] Stat Lab 05/20/24 10:18 Completed UA W/RFX UR CULTURE Stat Lab 05/20/24 12:17 Completed Medication Summary Discontinued Medications Generic Name Dose Route Start Last Admin Trade Name Freq PRN Reason Stop Dose Admin Fentanyl Citrate 50 mcg 05/20/24 12:31 05/20/24 15:07 Fentanyl Citrate 100 Mcg/2 Ml* Vial IV 05/20/24 12:32 Not Given STAT ONE Fentanyl Citrate 25 mcg 05/20/24 15:02 05/20/24 15:07 Fentanyl Citrate 100 Mcg/2 Ml* Vial IV 05/20/24 15:03 25 mcg STAT ONE Administration Fentanyl Citrate Confirm 05/20/24 15:02 Fentanyl Citrate 100 Mcg/2 Ml* Vial Administered 05/20/24 15:03 Dose 100 mcg .ROUTE .STK-MED ONE Sodium Chloride 500 mls @ 500 mls/hr 05/20/24 09:32 05/20/24 13:42 Sodium Chloride 0.9% 500 Ml IV 05/20/24 10:31 Infused .Q1H ONE Infusion Sodium Chloride Confirm 05/20/24 10:07 Sodium Chloride 0.9% 500 Ml Administered 05/20/24 10:08 Dose 500 mls @ ud IV .STK-MED ONE Magnesium Sulfate/Water 2 gm in 50 mls @ 100 mls/hr 05/20/24 10:56 05/20/24 13:42 Magnesium Sulf 2 G/50 Ml Bag IV 05/20/24 11:25 Infused ONCE ONE Infusion Potassium Chloride 20 meq in 100 mls @ 50 mls/hr 05/20/24 11:00 05/20/24 13:12 Potassium Chloride 20 Meq In Water 100ml IV 05/20/24 14:59 50 mls/hr Q2H ASA Administration Magnesium Sulfate/Water Confirm 05/20/24 11:05 Magnesium Sulf 2 G/50 Ml Bag Administered 05/20/24 11:06 Dose 2 gm in 50 mls @ ud IV .STK-MED ONE Sodium Chloride Confirm 05/20/24 11:12 Sodium Chloride 0.9% 500 Ml Administered 05/20/24 11:13 Dose 500 mls @ ud IV .STK-MED ONE Sodium Chloride 500 mls @ 100 mls/hr 05/20/24 11:25 05/20/24 11:26 Sodium Chloride 0.9% 500 Ml IV 05/20/24 16:24 100 mls/hr .Q5H ONE Administration Metronidazole 500 mg in 100 mls @ 200 mls/hr 05/20/24 12:06 05/20/24 15:12 Flagyl 500 Mg Ivpb IV 05/20/24 12:35 Infused STAT STA Infusion Levofloxacin/Dextrose 750 mg in 150 mls @ 100 mls/hr 05/20/24 12:06 05/20/24 15:13 Levofloxacin 750mg/150ml D5w IV 05/20/24 13:35 Infused STAT STA Infusion Sodium Chloride 1,000 mls @ 125 mls/hr 05/20/24 12:15 05/20/24 13:25 Sodium Chloride 0.9% 1000 Ml IV 06/19/24 12:14 125 mls/hr .Q8H ASA Administration Levofloxacin/Dextrose Confirm 05/20/24 12:42 Levofloxacin 750mg/150ml D5w Administered 05/20/24 12:43 Dose 750 mg in 150 mls @ ud IV .STK-MED ONE Meropenem 1 gm/ Sodium 100 mls @ 200 mls/hr 05/20/24 13:57 05/20/24 14:59 Chloride IV 05/20/24 14:26 200 mls/hr STAT ONE Administration Sodium Chloride Confirm 05/20/24 14:06 Sodium Chloride 0.9% 500 Ml Administered 05/20/24 14:07 Dose 500 mls @ ud IV .STK-MED ONE Metronidazole Confirm 05/20/24 14:08 Flagyl 500 Mg Ivpb Administered 05/20/24 14:09 Dose 500 mg in 100 mls @ ud IV .STK-MED ONE Norepinephrine/Dextrose 8 mg in 250 mls @ 15 mls/hr 05/20/24 14:21 05/20/24 14:38 Norepinephrine 8 Mg/250 Ml-D5w IV 06/19/24 14:20 8 mcg/min .[id number] PRN 15 mls/hr HYPOTENSION Administration Protocol 8 MCG/MIN Norepinephrine/Dextrose 8 mg in 250 mls @ 15 mls/hr 05/20/24 14:36 Norepinephrine 8 Mg/250 Ml-D5w IV 06/19/24 14:35 .[id number] PRN HYPOTENSION Protocol 8 MCG/MIN Sodium Chloride 500 mls @ 500 mls/hr 05/20/24 14:39 05/20/24 14:39 Sodium Chloride 0.9% 500 Ml IV 05/20/24 15:38 500 mls/hr .Q1H ONE Administration Sodium Chloride Confirm 05/20/24 14:58 Sodium Chloride 100ml Mini-Bag Plus Administered 05/20/24 14:59 Dose 100 mls @ ud IV .STK-MED ONE Potassium Chloride Confirm 05/20/24 11:05 Potassium Chloride 20 Meq In Water 100ml Administered 05/20/24 11:06 Dose 100 mls @ ud IV .STK-MED ONE Potassium Chloride Confirm 05/20/24 13:11 Potassium Chloride 20 Meq In Water 100ml Administered 05/20/24 13:12 Dose 100 mls @ ud IV .STK-MED ONE Sodium Chloride Confirm 05/20/24 12:50 Sodium Chloride 0.9% 1000 Ml Administered 05/20/24 12:51 Dose 1,000 mls @ ud .ROUTE .STK-MED ONE Sodium Chloride Confirm 05/20/24 13:24 Sodium Chloride 0.9% 1000 Ml Administered 05/20/24 13:25 Dose 1,000 mls @ ud .ROUTE .STK-MED ONE Norepinephrine/Dextrose Confirm 05/20/24 14:23 Norepinephrine 8 Mg/250 Ml-D5w Administered 05/20/24 14:24 Dose 8 mg in 250 mls @ ud IV .STK-MED ONE Meropenem Confirm 05/20/24 14:58 Meropenem 1 Gm Vial Administered 05/20/24 14:59 Dose 1 gm IV .STK-MED ONE Metoclopramide HCl 5 mg 05/20/24 13:41 05/20/24 13:44 Metoclopramide Hcl 10 Mg/2 Ml Vial IV 05/20/24 13:42 5 mg STAT ONE Administration Metoclopramide HCl Confirm 05/20/24 13:44 Metoclopramide Hcl 10 Mg/2 Ml Vial Administered 05/20/24 13:45 Dose 10 mg .ROUTE .STK-MED ONE Morphine Sulfate 4 mg 05/20/24 09:32 05/20/24 10:08 Morphine Sulfate 4 Mg/Ml Injection IV 05/20/24 09:33 4 mg STAT ONE Administration Morphine Sulfate Confirm 05/20/24 10:07 Morphine Sulfate 4 Mg/Ml Injection Administered 05/20/24 10:08 Dose 4 mg .ROUTE .STK-MED ONE Ondansetron HCl Confirm 05/20/24 09:02 Zofran 4 Mg/Udtablet Orally Disintegrating Administered 05/20/24 09:03 Dose 4 mg .ROUTE .STK-MED ONE Ondansetron HCl 4 mg 05/20/24 09:08 05/20/24 10:08 Ondansetron Hcl 4 Mg/2 Ml Vial IV 05/20/24 09:09 4 mg STAT ONE Administration Ondansetron HCl 4 mg 05/20/24 09:14 05/20/24 09:16 Zofran 4 Mg/Udtablet Orally Disintegrating PO 05/20/24 09:15 4 mg STAT ONE Administration Ondansetron HCl Confirm 05/20/24 10:07 Ondansetron Hcl 4 Mg/2 Ml Vial Administered 05/20/24 10:08 Dose 4 mg .ROUTE .STK-MED ONE Potassium Chloride 40 meq 05/20/24 10:56 05/20/24 11:06 Potassium Chloride Tab 10 Meq Tab PO 05/20/24 10:57 40 meq STAT ONE Administration Potassium Chloride Confirm 05/20/24 11:04 Potassium Chloride Tab 10 Meq Tab Administered 05/20/24 11:05 Dose 40 meq .ROUTE .STK-MED ONE Lab/Rad Data: Laboratory Result Diagrams 05/20/24 10:18 05/20/24 10:18 Laboratory Results 05/20/24 05/20/24 05/20/24 Range/Units 13:25 12:17 10:18 WBC (3.98-10.04) x10^3/uL RBC (3.93-5.22) x10^6/uL Hgb (11.2-15.7) g/dL Hct (34.1-44.9) % MCV (79.4-94.8) fL MCH (25.6-32.2) pg MCHC (32.2-35.5) g/dL RDW (11.7-14.4) % Plt Count (182-369) x10^3/uL MPV (9.4-12.3) fL Gran % (34.0-71.1) % Immature Gran % (Auto) (0.001-0.429) % Nucleat RBC Rel Count (0.00-0.2) % Eos # (Auto) (0.04-0.36) x10^3/uL Immature Gran # (Auto) (0.001-0.031) x10^3u/L Absolute Lymphs (auto) (1.18-3.74) x10^3/uL Absolute Monos (auto) (0.24-0.86) x10^3/uL Absolute Nucleated RBC (0.00-0.012) x10^3u/L Lymphocytes % (19.3-51.7) % Monocytes % (4.7-12.5) % Eosinophils % (0.7-5.8) % Basophils % (0.1-1.2) % Absolute Granulocytes (1.56-6.13) x10^3/uL Basophils # (0.01-0.08) x10^3/uL Sodium (135-145) mmol/L Potassium (3.5-5.1) mmol/L Chloride (98-107) mmol/L Carbon Dioxide (22-30) mmol/L Anion Gap (5-15) MEQ/L BUN (7-17) mg/dL Creatinine (0.52-1.04) mg/dL Estimated GFR ML/MIN Glucose (74-106) mg/dL Lactic Acid 4.5 H (0.4-2.0) Calcium (8.4-10.2) mg/dL Magnesium 2.0 (1.6-2.3) mg/dL Total Bilirubin (0.2-1.3) mg/dL AST (14-36) U/L ALT (0-35) U/L Alkaline Phosphatase (38-126) U/L Serum Total Protein (6.3-8.2) g/dL Albumin (3.5-5.0) g/dL Lipase (23-300) U/L Urine Color Dark Yellow A (Yellow) Urine Appearance Cloudy A (Clear) Urine pH 8.5 A (4.6-8.0) Ur Specific [place] 1.015 (1.005-1.030) Urine Protein 30 (Negative) Urine Glucose (UA) Negative (Negative) mg/dL Urine Ketones Negative (Negative) Urine Blood Negative (Negative) Urine Nitrite Negative (Negative) Urine Bilirubin Small A (Negative) Urine Urobilinogen 2.0 A (0.2) mg/dL Ur Leukocyte Esterase Trace A (Negative) U Hyaline Cast (Auto) 3-5 A (0-2) /LPF Urine Microscopic RBC 3-5 (0-5) /HPF Urine Microscopic WBC 0-2 (0-5) /HPF Ur Epithelial Cells Few (None Seen) /HPF Urine Bacteria Rare A (None Seen) /HPF Urine Culture Reflexed YES (NO) 05/20/24 05/20/24 Range/Units 10:18 10:18 WBC 7.2 (3.98-10.04) x10^3/uL RBC 5.36 H (3.93-5.22) x10^6/uL Hgb 16.5 H (11.2-15.7) g/dL Hct 48.9 H (34.1-44.9) % MCV 91.2 (79.4-94.8) fL MCH 30.8 (25.6-32.2) pg MCHC 33.7 (32.2-35.5) g/dL RDW 13.2 (11.7-14.4) % Plt Count 346 (182-369) x10^3/uL MPV 8.7 L (9.4-12.3) fL Gran % 88.5 H (34.0-71.1) % Immature Gran % (Auto) 0.3 (0.001-0.429) % Nucleat RBC Rel Count 0.0 (0.00-0.2) % Eos # (Auto) 0.01 L (0.04-0.36) x10^3/uL Immature Gran # (Auto) 0.02 (0.001-0.031) x10^3u/L Absolute Lymphs (auto) 0.67 L (1.18-3.74) x10^3/uL Absolute Monos (auto) 0.10 L (0.24-0.86) x10^3/uL Absolute Nucleated RBC 0.00 (0.00-0.012) x10^3u/L Lymphocytes % 9.3 L (19.3-51.7) % Monocytes % 1.4 L (4.7-12.5) % Eosinophils % 0.1 L (0.7-5.8) % Basophils % 0.4 (0.1-1.2) % Absolute Granulocytes 6.41 H (1.56-6.13) x10^3/uL Basophils # 0.03 (0.01-0.08) x10^3/uL Sodium 137 (135-145) mmol/L Potassium 1.9 L* (3.5-5.1) mmol/L Chloride 98 (98-107) mmol/L Carbon Dioxide 25 (22-30) mmol/L Anion Gap 15.4 H (5-15) MEQ/L BUN 16 (7-17) mg/dL Creatinine 0.97 (0.52-1.04) mg/dL Estimated GFR 64.5 ML/MIN Glucose 165 H (74-106) mg/dL Lactic Acid (0.4-2.0) Calcium 10.4 H (8.4-10.2) mg/dL Magnesium (1.6-2.3) mg/dL Total Bilirubin 1.00 (0.2-1.3) mg/dL AST 36 (14-36) U/L ALT 21 (0-35) U/L Alkaline Phosphatase 92 (38-126) U/L Serum Total Protein 7.4 (6.3-8.2) g/dL Albumin 4.6 (3.5-5.0) g/dL Lipase 94 (23-300) U/L Urine Color (Yellow) Urine Appearance (Clear) Urine pH (4.6-8.0) Ur Specific [place] (1.005-1.030) Urine Protein (Negative) Urine Glucose (UA) (Negative) mg/dL Urine Ketones (Negative) Urine Blood (Negative) Urine Nitrite (Negative) Urine Bilirubin (Negative) Urine Urobilinogen (0.2) mg/dL Ur Leukocyte Esterase (Negative) U Hyaline Cast (Auto) (0-2) /LPF Urine Microscopic RBC (0-5) /HPF Urine Microscopic WBC (0-5) /HPF Ur Epithelial Cells (None Seen) /HPF Urine Bacteria (None Seen) /HPF Urine Culture Reflexed (NO) - Progress Progress: improved, pain not gone completely Progress Note: 05/20/24 12:31 68 years old is evaluated in the ER for abdominal pain with questionable co nstipation. Started to have worsening of cramping after taking laxative last night. Patient has nausea and dry heaving but no vomiting. Has a hypoactive bowel sounds. Diffuse tenderness more in the lower abdomen. She is given fluids and symptomatic treatment, on reevaluation she is feeling better but still not completely resolved. Workup showed normal white count, fairly unremarkable chemistries except for potassium of 1.9, given oral and IV replacement and also given [address] abdomen pelvis without contrast showed diffuse diverticular disease with diverticulitis and pneumoperitoneum suggesting perforation. Discussed with Dr. Boss general surgeon on-call who has seen patient and recommended continue with IV antibiotics, fluids, n.p.o. and admission to the hospital service in consultation with general surgery. Discussed the results of workup, plan of management and admission with patient and family who understand and agree. 05/20/24 14:12 While in the ER patient blood pressure was dropping in 70s, was tachycardic in 110s with increasing pain and some abdominal distention and more guarding. Patient is given full sepsis bolus of fluid but still blood pressure 90/50. Discussed with Dr. Emmett Boss, reviewed history, workup and current vitals and worsening of condition, recommended transfer to facility with ICU services as patient possible postop need pressor. Also given a dose of meropenem. I have discussed with patient and family and they prefer to go to [facility]. I have discussed with Dr. Jimenez hospitalist and Dr. Rao general surgeon from [facility], reviewed history, workup and patient is accepted for transfer. 05/20/24 14:22 Levophed ordered because blood pressure dropping in 60s. 05/20/24 14:50 Patient is started on Levophed 8 mics, pressure improved to 111/56. Central line is placed. Discussed with Dr.: Tyler Garcia Will see patient in: hospital (observation) Counseled pt/family regarding: lab results, diagnosis, rad results Medical Desision Making - Independent Historian Additional History obtained from: Spouse, Joy Operator Helper/EMT - Discussion of managment Care discussed with:: specialist (General surgeon Dr. Kervin Boss, hospitalist Dr. Martinez) Reviewed:: Test results Agreed on:: Treatment plan, place in obs Will see patient: in hospital - Diagnostic Testing Diagnostic test were ordered, analyzed, and reviewed by me: Yes Radiological Interpretation: Reviewed by me, Teleradiologist Report - Risk of complications The pt has a mod risk of morbidity or mortality based on: Need for prescription drug management The pt has a high risk of morbidity or mortality based on: Decision regarding hospitilization or escalation of hosp level of care - Departure Departure Disposition: Transfer Clinical Impression: Diverticulitis of colon with perforation, Hypokalemia, Hypotension Condition: Fair Critical Care Time: Yes Critical Care Time(excluding separately billable procedures): Critical 75-104 mins Referrals: IAN CUELLO, HOP FARMER [Primary Care Provider] - Follow up/PCP as directed
[2024-05-20] MEDS ORDERED: LEVOFLOXACIN 750MG/150ML D5W 750 MG/150 ML BAG IV ONE (12:42)
[2024-05-20] MEDS: LEVOFLOXACIN 750MG/150ML D5W 750 MG/150 ML BAG IV STA (12:45)
[2024-05-20] MEDS ORDERED: Sodium Chloride 0.9% 1000 ML 1,000 ML ONE ×2 (12:50→13:24)
[2024-05-20 13:05] LABS: Appearance Cloudy (Clear); Bacteria Rare /HPF (None Seen); Bilirubin Small (Negative); Blood Negative (Negative); Epithelial Cells Few /HPF (None Seen); Glucose, Urine Negative (Negative); Ketones Negative (Negative); Leukocyte Esterase Trace (Negative); Nitrite Negative (Negative); Ph 8.5 (4.6-8.0); Protein,Urine Dip 30 (Negative); Specific Gravity 1.015 (1.005-1.030); WBC 0-2 /HPF (0-5)
[2024-05-20 13:06] LABS: ADD URINE CULTURE? YES (NO)
[2024-05-20] MEDS: Sodium Chloride 0.9% 1000 ML 1,000 ML IV SCH (13:25)
[2024-05-20] MEDS ORDERED: Reglan 10 MG/2 ML ONE (13:44)
[2024-05-20] MEDS: Reglan 10 MG/2 ML IV ONE (13:44)
[2024-05-20] MEDS ORDERED: FLAGYL 500 MG IVPB 500 MG/100 ML BAG IV ONE (14:08)
[2024-05-20] MEDS: FLAGYL 500 MG IVPB 500 MG/100 ML BAG IV STA (14:09)
[2024-05-20] MEDS ORDERED: NOREPINEPHRINE 8 MG/250 ML-D5W 8 MG/250 ML PLAST..BAG IV ONE (14:23)
[2024-05-20 14:36] VITALS: RESP 17
[2024-05-20] MEDS ORDERED: NOREPINEPHRINE 8 MG/250 ML-D5W 8 MG/250 ML PLAST..BAG IV PRN (14:36)
[2024-05-20] MEDS: NOREPINEPHRINE 8 MG/250 ML-D5W 8 MG/250 ML PLAST..BAG IV PRN (14:38)
[2024-05-20] MEDS ORDERED: Sodium Chloride 100ML MINI-BAG PLUS 100 ML IV ONE (14:58)
[2024-05-20] MEDS ORDERED: Merrem IV ONE (14:58)
[2024-05-20] MEDS: Merrem 1 GM in Sodium Chloride 100ML MINI-BAG PLUS 100 ML IV ONE (14:59)
[2024-05-20] MEDS ORDERED: SUBLIMAZE 100 MCG/2 ML ONE (15:02)
[2024-05-20] MEDS: SUBLIMAZE 100 MCG/2 ML IV ONE ×2 (15:07)
[2024-05-20 15:09] VITALS: BP 100/45; PULSE 112
--- NOTE | 2024-05-20 16:04 | XRAY ---
CLINICAL HISTORY: cvc placement/ ngt COMPARISON: None. TECHNIQUE: Chest X-ray was performed in 1 view: AP view. FINDINGS: Rotation of the patient is noted on the left side. Cardiac silhouette appears unremarkable. Haziness is noted in bilateral costophrenic angles suggesting pleural thickening / minimal effusion. Atelectasis is noted in the left lung base. A right sided central venous line is noted. The tip is noted in the lower SVC/right atrium junction. Malplaced NGT is noted in the mid line thorax coiling and looping back in the chest. Needs readjustment. IMPRESSION: Haziness is noted in bilateral costophrenic angles suggesting pleural thickening / minimal effusion. Atelectasis is noted in the left lung base. A right sided central venous line is noted. The tip is noted in the lower SVC/right atrium junction. Malplaced NGT is noted in thorax coiling and looping back in the chest. Needs replacement. 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 Electronically Signed by: Evelyn Kim MD. (05/20/2024 16:01:19 EDT)
--- NOTE | 2024-05-20 19:14 | XRAY ---
Indication: Central venous catheter and NG tube placement. Comparison: May 25, 2012 Portable chest demonstrates new right jugular central venous access catheter with tip projecting over SVC without pneumothorax. New NG tube with distal tube folded over with tip projecting over [place]. Follow up CXR demonstrates readjustment. New left lung base infiltrate/atelectasis. Remaining heart and right lung unremarkable. Bony thorax intact.
[2024-05-20 22:30] VITALS: O2SAT 96
--- NOTE | 2024-05-21 09:56 | CONS ---
HISTORY: Patient was seen and examined in the emergency room. I was called about 20 minutes earlier. She had already been seen by the emergency room physician. I saw her in room 7. She is lying on her left side down, right side up. She has her arm under her head. She looks like she is in some pain. She had a shot of morphine. She is still having some discomfort. She says it is better although it did not totally take the edge off. Today is May 20 at noon, 12:30. She was okay Friday. She had her last bowel movement on Friday, but she did not have a bowel movement Friday, Friday, Friday. She is obstipated. She took a laxative Friday and then subsequently developed cramping, and then subsequently, she developed pain. Now her cramping is better. The pain has gone from down in the pelvis to up in the abdomen a little bit and has gotten a little better. She is still lying still, left side down. Her white count is normal. Her CT scan shows free air. It does not show free fluid. She thinks she has been told that she had diverticulitis in the past, although I do not think she has been hospitalized for such. I did not ask her about any recent colonoscopic examination. PAST MEDICAL HISTORY: She has been in reasonable health. She has had some issues. She currently has had some imbalance. She was seeing a neurologist. She flunked a tilt table test. She has been referred to the paper machine operator, Dr. Sullivan, for evaluation. She said she had some type of angina in the past that was controlled by medications. She has not had heart stents. She has had not had an open heart. PAST SURGICAL HISTORY: She has had a shoulder repair. She has had a hysterectomy. She has had a cholecystectomy. LAB DATA AND TESTS: Her white count is noted. Her potassium 1.9. PHYSICAL EXAMINATION: GENERAL: She is alert and oriented and answers questions appropriately and well. Her is present in a chair in the room. ABDOMEN: Moderately distended. It is mildly tender. IMPRESSION: She is having some antibiotics, Cipro and Flagyl started immediately. She has had some IV fluids. She is going to get additional IV fluids and potassium. It looks like she could be admitted here to the hospital, so thus consulted. Initially,this is perforation with microperforation and free air. No free fluid. She did have a void. As a matter of fact, she has voided several times, so I do not think she is undergoing any issue there. She basically has diverticulitis with a microperforation and, as yet, not totally known clinical course. We will check back on her in a few hours. As noted, she is going to change her pain medicine from morphine to Dilaudid. She is going to continue to get IV fluids. She is going to get potassium resuscitation. She is going to get IV antibiotics, and she is going to get vital sign reassessment by the nursing staff along with measurement of urine output. Discussion with both the patient and the that if we operate upfront we usually do a colostomy. If we can nurse this along, we could see if we do not have to operate. Sometimes abscesses and collections we can drain by Interventional Radiology. Sometimes, there is no residual collections at all. It is certainly not written in stone that we absolutely would have to operate on her, but if her clinical course deteriorates, we will have to operate on her.
== END 2024-05-20 15:15 | disposition short-term general hospital (02) ==
LOC: ED 08:38
DX: K57.20 Diverticulitis of large intestine with perforation and abscess without bleeding (principal); E87.6 Hypokalemia; I95.9 Hypotension, unspecified; R10.84 Generalized abdominal pain; R11.2 Nausea with vomiting, unspecified; I10 Essential (primary) hypertension; Z79.899 Other long term (current) drug therapy
CPT/HCPCS: 36415; 36556; 51702; 71045; 74176; 80053; 81001; 83605; 83690; 83735; 85025; 87077; 87086; 87186; 96365; 96367; 96374; 96375; 99285; 99291; J1956; J2270; J2405; J3010; J3480; Q0162; A9270-GY; J3475

== ENCOUNTER 2024-10-04 10:57 | Emergency (ER) | payer MEDICARE, OTHER ==
--- NOTE | 2024-05-31 08:06 | HP ---
HISTORY OF PRESENT ILLNESS: The patient is a 68-year-old who had a lot of reflux, unresolved with proton pump inhibitors. No specific food triggers. Sleeps upright at this time. No prior upper endoscopy. Needs upper endoscopy to evaluate for peptic ulcer disease, gastritis, esophagitis, or other etiology. PAST MEDICAL HISTORY: Hyperlipidemia. Has headaches and migraines in the past. Restless leg syndrome, hypothyroidism, reflux, and hypertension. HOME MEDICATIONS: [id number] allergy medication, fenofibrate, aspirin, allopurinol, nortriptyline, topiramate, hydrochlorothiazide, lansoprazole, amlodipine, levothyroxine. ALLERGIES: Iodine and penicillin. SOCIAL HISTORY: No smoking or alcohol abuse. FAMILY HISTORY: Renal cancer and diabetes. PAST SURGICAL HISTORY: Had cholecystectomy, hysterectomy, cardiac catheterization, knee scope in the past, rotator cuff surgery in the past. REVIEW OF SYSTEMS: Twelve systems reviewed. No chest pain or palpitations. Other systems negative or noncontributory as above and per preadmission questionnaire. PHYSICAL EXAMINATION: VITAL SIGNS: Height 5 feet 8 inches. BMI 33.45. GENERAL: No acute distress. HEENT: Sclerae nonicteric. Extraocular movements intact. NECK: No JVD. CHEST: Equal excursion, nonlabored breathing. CARDIOVASCULAR: Regular rate and rhythm. ABDOMEN: Soft. EXTREMITIES: No cyanosis or edema. NEUROLOGIC: Alert and oriented, moving all extremities symmetrically. PSYCHIATRIC: Appropriate mood and affect. SKIN: Dry. IMPRESSION: Increased reflux despite proton pump inhibitor, in need of EGD with possible biopsy. Risks explained in detail including but not limited to bleeding or infection, risk of bowel injury or perforation, risk of missed or nondiagnosis or incomplete exam possibly requiring barium swallow or other studies or procedures, general risk of anesthesia, risk of sedation, risk of bowel prep but not limited to. Will proceed with outpatient EGD with possible biopsy. Otherwise, continue medication for reflux, hypertension, migraines, lipids, hypothyroidism, and restless leg syndrome.
--- NOTE | 2024-10-04 07:52 | HP ---
HISTORY OF PRESENT ILLNESS: A 69-year-old who apparently had a perforated bowel back in May at [facility], diverticular disease. Last colonoscopy 10 years ago. Family history is negative for colon cancer. She has had a history of some reflux. She is scheduled for an upper endoscopy, prior perforation with bowel, EGD to evaluate for gastritis, esophagitis, for peptic ulcer disease, as well as colonoscopy. PAST MEDICAL HISTORY: Reflux, heartburn, history of headaches, hypothyroidism, history of some heart disease. PAST SURGICAL HISTORY: Had cholecystectomy, hysterectomy, colon resection, cardiac catheter, rotator cuff surgery. FAMILY HISTORY: Negative for colon cancer. History of heart attack, renal cancer, and stroke in the family. SOCIAL HISTORY: No smoking. No alcohol abuse. MEDICATIONS: MiraLAX, potassium chloride, Ropinirole, amitriptyline, Omeprazole, furosemide, levothyroxine, topiramate, Colace. ALLERGIES: Iodine and Penicillin. REVIEW OF SYSTEMS: Twelve systems reviewed. No chest pain or palpitations. Other systems negative or noncontributory as above and per preadmission questionnaire. Does have some chronic constipation. PHYSICAL EXAMINATION: GENERAL: Height 5 feet 8 inches. BMI 29.8. No acute distress. HEENT: Sclerae nonicteric. Extraocular movements intact. NECK: No JVD. CHEST: Equal excursion, nonlabored breathing. CARDIOVASCULAR: Regular rate and rhythm. ABDOMEN: Soft. EXTREMITIES: No cyanosis or edema. NEUROLOGIC: Alert and oriented. Moving all extremities symmetrically. PSYCHIATRIC: Appropriate mood and affect. SKIN: Dry. RECTAL: Deferred until time of endoscopy exam. IMPRESSION: Needs colonoscopy screening prior to patient possibly considering ostomy takedown down the road. She needs EGD to evaluate for increased reflux. Risks explained in detail to include bleeding; infection; risk of bowel injury; perforation, risk of misdiagnosis or incomplete exam; barium enema; possible need for further procedure or referral; risk of sedation or anesthesia; risk of bowel prep but not limited to. We will proceed with outpatient colonoscopy and EGD under MAC anesthesia. Otherwise, continue medications for reflux disease, thyroid disease, headaches, coronary artery disease. The patient understands and agrees to planned procedure.
[2024-10-04 08:45] LABS: ALBUMIN 4.6 g/dL (3.5-5.0); ANION GAP 14.8 MEQ/L (5-15); BILIRUBIN,TOTAL 0.6 mg/dL (0.2-1.3); Creatinine 1 0.85 mg/dL (0.52-1.04); Total Protein 8.2 g/dL (6.3-8.2)
[2024-10-04 08:50] LABS: Potassium 2.7 mmol/L (3.5-5.1)
--- NOTE | 2024-10-04 09:16 | XRAY ---
Indication: Preop exam. Comparison: May 20, 2024 PA/lateral chest demonstrates new mild bibasilar discoid atelectasis/scarring. No focal infiltrate, consolidation, or large effusion. Heart not enlarged. Bony thorax intact again with osteopenia and mild degenerative changes. Impression: Nonacute chest with chronic features.
[2024-10-04 11:26] VITALS: TEMP 97.6
[2024-10-04] MEDS ORDERED: POTASSIUM CHLORIDE 20 mEq IN WATER 100ML 100 ML IV ONE ×2 (12:33→15:13)
[2024-10-04] MEDS ORDERED: Klor Con ONE (12:33)
[2024-10-04] MEDS: Klor Con PO ONE (12:34)
[2024-10-04] MEDS: POTASSIUM CHLORIDE 20 mEq IN WATER 100ML 20 MEQ/100 ML BAG IV SCH (12:35)
[2024-10-04] MEDS ORDERED: Sodium Chloride 0.9% 1000 ML 1,000 ML ONE (12:38)
[2024-10-04] MEDS: Sodium Chloride 0.9% 1000 ML 1,000 ML IV SCH (12:39)
[2024-10-04] MEDS ORDERED: TYLENOL EXTRA STRENGTH 500 MG ONE (13:21)
[2024-10-04] MEDS: TYLENOL EXTRA STRENGTH 500 MG PO ONE (13:21)
--- NOTE | 2024-10-04 15:35 | ERPHSYRPT ---
- History of Present Illness Time Seen by Provider: 10/04/24 11:00 Source: patient Exam Limitations: clinical condition Patient Subjective Stated Complaint: Abnormal labs- K+ 2.7 Triage Nursing Assessment: Patient brought back to ED per w/c and transferred to bed with assist of 1. Patient A+O X 3. Patient's skin pink, warm and dry. Patient at outpatient surgery today for EEG and Colonscopy by Dr. Durán. Patient has labs done prior to surgery and her K+ was 2.7. Patient sent here to get K+ increased. Patient complains of headache 03/26. Timing/Duration: today Severity: mild Modifying Factors: Improves With: nothing Allergies/Adverse Reactions: Iodinated Contrast Media Allergy (Verified 10/04/24 11:16) Penicillins Allergy (Verified 10/04/24 11:16) Home Medications: Fenofibrate,Micronized [Fenofibrate] 54 mg PO DAILY 01/25/22 [History] Levothyroxine Sodium 88 Mcg [Synthroid 88 Mcg] 88 mcg PO DAILY 01/25/22 [History] Ropinirole HCl 4 mg PO DAILY 01/25/22 [History] Amitriptyline HCl 50 mg PO DAILY 05/11/24 [History] Cetirizine HCl [Allergy] 10 mg PO DAILY 05/11/24 [History] Topiramate 50 mg PO BID 05/11/24 [History] Docusate Sodium [Colace] 100 mg PO UD 09/29/24 [History] Furosemide 40 mg PO UD 09/29/24 [History] Omeprazole 40 mg PO UD 09/29/24 [History] Polyethylene Glycol 3350 [Miralax] 17 gm PO UD 09/29/24 [History] Potassium Chloride 15 ml PO UD 10/04/24 [History] Hx Tetanus, Diphtheria Vaccination/Date Given: Yes Hx Influenza Vaccination/Date Given: No Hx Pneumococcal Vaccination/Date Given: No Immunizations Up to Date: Yes Travel Risk - International Travel Have you traveled outside of the country in past 3 weeks: No - Emerging Infectious Disease Are you exhibiting symptoms associated with any current EIDs: No Symptoms: Abdominal Pain - Review of Systems Constitutional: No Symptoms Eyes: No Symptoms Ears, Nose, & Throat: No Symptoms Respiratory: No Symptoms Cardiac: No Symptoms Abdominal/Gastrointestinal: No Symptoms Genitourinary Symptoms: No Symptoms Musculoskeletal: No Symptoms Skin: No Symptoms Neurological: No Symptoms Psychological: No Symptoms Endocrine: No Symptoms Hematologic/Lymphatic: No Symptoms Immunological/Allergic: No Symptoms - Past Medical History Pertinent Past Medical History: Yes Neurological History: Migraines ENT History: No Pertinent History Cardiac History: Hypertension, Other Respiratory History: Bronchitis Endocrine Medical History: Hypothyroidism Musculoskeletal History: Other GI Medical History: GERD Psycho-Social History: Anxiety, Depression Other Medical History: 1 migraine every 1-2 months, vascular spasms, cardiac catheterization, various broken fingers and toes, nasal fractures, cholecystectomy, hysterectomy, L knee scope - Past Surgical History Past Surgical History: Yes Cardiac: Cardiac Catheterization Gastrointestinal: Cholecystectomy Musculoskeletal: Orthopedic Surgery Female Surgical History: Hysterectomy Other Surgical History: ricardo rotator cuff. knee scope Significant Family History: no pertinent family hx - Social History Smoking Status: Former smoker How long have you smoked: 30 Exposure to second hand smoke: No Drug Use: none Patient Lives Alone: No - Social Determinants of Health Will the patient participate in the screening: Yes Do you worry about a steady place to live?: No Do you have any problems with any of the following?: No known problems In the past 12 months,have you had to go without utilities?: No Transportation Issues: No Has anyone in your support network made you feel unsafe?: No Have you or anyone in your house had to go without enough: No - Nursing Vital Signs Nursing Vital Signs: Initial Vital Signs Temperature 96.8 F 10/04/24 08:09 Pulse Rate 78 10/04/24 08:09 Respiratory Rate 18 10/04/24 08:09 Blood Pressure 120/72 10/04/24 08:09 O2 Sat by Pulse Oximetry 97 10/04/24 08:09 Pain Scale Pain Intensity 0 - Physical Exam General Appearance: no apparent distress Eye Exam: PERRL/EOMI Ears, Nose, Throat Exam: normal ENT inspection Neck Exam: normal inspection Respiratory Exam: normal breath sounds Cardiovascular Exam: regular rate/rhythm Gastrointestinal/Abdomen Exam: soft, normal bowel sounds SpO2: 92 Ordered Tests: Active Orders 24 hr Category Date Time Status Telemetry q4h Care 10/04/24 12:13 Active CHEST 2 VIEWS (PA AND LAT) Stat Exams 10/04/24 08:24 Completed CMP Stat Lab 10/04/24 08:29 Completed Potassium (Lab Test) [Potassium] Stat Lab 10/04/24 09:14 Completed EKG STAT RT 10/04/24 08:08 Completed Medication Summary Generic Name Dose Route Start Last Admin Trade Name Gutierrez PRN Reason Stop Dose Admin Potassium Chloride 20 meq in 100 mls @ 50 mls/hr 10/04/24 12:15 10/04/24 15:14 Potassium Chloride 20 Meq In Water 100ml IV 10/04/24 16:14 50 mls/hr Q2H ASA Administration Sodium Chloride 1,000 mls @ 50 mls/hr 10/04/24 12:45 10/04/24 12:39 Sodium Chloride 0.9% 1000 Ml IV 11/03/24 12:44 50 mls/hr .Q20H ASA Administration Discontinued Medications Generic Name Dose Route Start Last Admin Trade Name Gutierrez PRN Reason Stop Dose Admin Acetaminophen 1,000 mg 10/04/24 13:16 10/04/24 13:21 Acetaminophen 500 Mg Tablet PO 10/04/24 13:17 1,000 mg STAT ONE Administration Acetaminophen Confirm 10/04/24 13:21 Acetaminophen 500 Mg Tablet Administered 10/04/24 13:22 Dose 1,000 mg .ROUTE .STK-MED ONE Potassium Chloride 40 meq 10/04/24 12:13 10/04/24 12:34 Potassium Chloride Tab 10 Meq Tab PO 10/04/24 12:14 40 meq STAT ONE Administration Potassium Chloride Confirm 10/04/24 12:33 Potassium Chloride Tab 10 Meq Tab Administered 10/04/24 12:34 Dose 40 meq .ROUTE .STK-MED ONE Lab/Rad Data: Laboratory Result Diagrams 10/04/24 09:14 Laboratory Results 10/04/24 10/04/24 Range/Units 09:14 08:29 Sodium 139 (135-145) mmol/L Potassium 2.8 L* 2.7 L* (3.5-5.1) mmol/L Chloride 101 (98-107) mmol/L Carbon Dioxide 26 (22-30) mmol/L Anion Gap 14.8 (5-15) MEQ/L BUN 12 (7-17) mg/dL Creatinine 0.85 (0.52-1.04) mg/dL Estimated GFR 75.0 ML/MIN Glucose 96 (74-106) mg/dL Calcium 10.0 (8.4-10.2) mg/dL Total Bilirubin 0.60 (0.2-1.3) mg/dL AST 35 (14-36) U/L ALT 23 (0-35) U/L Alkaline Phosphatase 107 (38-126) U/L Serum Total Protein 8.2 (6.3-8.2) g/dL Albumin 4.6 (3.5-5.0) g/dL - Progress Progress Note: patient was given potassium po and iv and will be discharged home with close fo llow up and was informed of the need to repeat her K levels on an outpatient basis 10/04/24 15:33 Medical Desision Making - Discussion of managment Agreed on:: need for follow-up - Departure Departure Disposition: Home Clinical Impression: Hypokalemia Condition: Stable Critical Care Time: Yes Critical Care Time(excluding separately billable procedures): Critical 30-74 mins Referrals: [facility] [Primary Care Provider] - Follow up/PCP as directed
[2024-10-04 17:22] VITALS: BP 98/37; PULSE 79; RESP 22; O2SAT 98
== END 2024-10-04 17:29 | disposition home or self-care (01) ==
LOC: ED 10:57 → EDSTATUS 10:57 → ED 17:29
DX: E87.6 Hypokalemia (principal); R51.9 Headache, unspecified
CPT/HCPCS: 36415; 71046; 80053; 84132; 93005; 96365; 96367; 96368; 99284; 99285; 99291; J3480; A9270-GY

== ENCOUNTER 2024-11-01 08:37 | Day surgery (SDC) | payer MEDICARE, OTHER, SELFPAY ==
--- NOTE | 2024-10-31 22:41 | HP ---
HISTORY OF PRESENT ILLNESS: Patient had prior perforated bowel back in May, had diverticulitis at [place]. Last colonoscopy 10 years ago. Family history negative for colon cancer. History of increased reflux. Will schedule for EGD. Prior perforation, some increased reflux, a little better now. Needs upper endoscopy to evaluation for gastritis, esophagitis, or peptic ulcer disease, as well as colonoscopy. PAST MEDICAL HISTORY: Again, she had the perforation at [facility] back in May. Otherwise, she has had some reflux, headaches, hypothyroidism, and some heart disease. HOME MEDICATIONS: MiraLAX, potassium chloride, ropinirole, amitriptyline, omeprazole, furosemide, levothyroxine, topiramate, Colace. ALLERGIES: Iodine, penicillin. PAST SURGICAL HISTORY: Cholecystectomy, hysterectomy, colon resection for perforate bowel secondary to diverticular disease, colonoscopy in the past, had cardiac catheterization in the past, rotator cuff in the past. SOCIAL HISTORY: No smoking or alcohol abuse. FAMILY HISTORY: Stroke, cancer, heart disease. REVIEW OF SYSTEMS: Twelve systems reviewed. Pertinent for medical problems noted above. No chest pain or palpitation. Other systems negative or noncontributory as above and per preadmission questionnaire. PHYSICAL EXAMINATION: GENERAL: Height 5 feet 8 inches. BMI 29.8. No acute distress. HEENT: Sclerae nonicteric. Extraocular movements intact. NECK: No JVD. CHEST: Clear. Equal excursion, nonlabored breathing. CARDIOVASCULAR: Regular rate and rhythm. ABDOMEN: Soft. SKIN: Dry. EXTREMITIES: No clubbing, cyanosis, edema. NEUROLOGIC: Alert and oriented. Moving extremities symmetrically. PSYCHIATRIC: Appropriate mood and affect. IMPRESSION: She needs colonoscopy prior to considering ostomy takedown. Otherwise, needs upper endoscopy for increased reflux. Risks explained in detail including bleeding and infection; risk of bowel injury or perforation; risk of missed or nondiagnosis or incomplete exam possibly requiring barium enema or swallowing; risk of missed or nondiagnosis possibly needing other procedures or referrals; risk of sedation or anesthesia; risk of bowel prep but not limited to. Otherwise, continue medications for reflux, hypothyroidism, headaches, and heart disease. Will plan outpatient under MAC anesthesia EGD and colonoscopy.
[2024-11-01 08:54] VITALS: RESP 18
[2024-11-01] MEDS ORDERED: Zofran 4 MG/2 ML VIAL ONE ×2 (08:55→11:55)
[2024-11-01] MEDS: Zofran 4 MG/2 ML VIAL IV STA (08:57)
[2024-11-01 09:26] LABS: ANION GAP 15.6 MEQ/L (5-15); Calcium 10.2 mg/dL (8.4-10.2); Creatinine 1 0.76 mg/dL (0.52-1.04); EST GLOMERULAR FILTRATION RATE 85.8 ML/MIN; Potassium 4.4 mmol/L (3.5-5.1)
[2024-11-01 09:27] LABS: Hematocrit 38.8 % (34.1-44.9); Hemoglobin 12.3 g/dL (11.2-15.7); Mean Cell Volume 89.2 fL (79.4-94.8); Mean Corpuscular Hemoglobin 28.3 pg (25.6-32.2); Mean Corpuscular Hgb Concent. 31.7 g/dL (32.2-35.5); Mean Platelet Volume 8.7 fL (9.4-12.3); Platelet Count 344 x10^3/uL (182-369); Red Blood Count 4.35 x10^6/uL (3.93-5.22); Red Cell Distribution Width 15.5 % (11.7-14.4)
[2024-11-01] MEDS ORDERED: DIPRIVAN 200 MG/20 ML IV ONE ×2 (11:09→11:22)
[2024-11-01 12:25] VITALS: TEMP 96.5; O2SAT 93
[2024-11-01 12:27] VITALS: BP 111/67; PULSE 71
--- NOTE | 2024-11-02 14:58 | OP ---
SURGERY DATE/TIME: 11/01/2024 [id number] PREOPERATIVE DIAGNOSES: 1) Prior history of diverticulitis, needs to have colonoscopy prior to considering ostomy takedown down the road. 2) History of increased reflux, needs upper endoscopy. POSTOPERATIVE DIAGNOSES: 1) ASA class 3. 2) Withdrawal time for the proximal colon is approximately 6 minutes. 3) Limited bowel prep of the proximal colon and rectal or rectosigmoid stump. 4) Small polyps versus hyperplastic lesion in the transverse colon x2, descending colon x1. 5) Pancolonic diverticulosis. 6) Mild gastric erythema, antrum, and distal esophagus without any evidence of any ulcerations or erosions. 7) Limited prep of the rectal and rectosigmoid stump. 8) Pancolonic diverticulosis, proximal colon with small polyps. Limited prep. PROCEDURES: 1) Esophagogastroduodenoscopy with cold biopsy of the antrum for H pylori; cold biopsy of distal esophagus to evaluate for histology. 2) Colonoscopy through anus to rectal and rectosigmoid area stump. Limited exam; there was mucus and stool balls in the colon (no signs of any large polyps, masses, or obstructing lesions). 3) Colonoscopy through ostomy to cecum. Hot biopsy polypectomy of transverse colon polyps x2, descending colon polyps x1. SURGEON: Red Durán MD ANESTHESIA: MAC. ESTIMATED BLOOD LOSS: Minimal. INDICATIONS: ASA Class 3. Prep was only fair and on the limited side as well as a poor, rectal and rectosigmoid stump. DESCRIPTION OF PROCEDURE AND FINDINGS: After official time-out, no disagreement with planned procedure. Bite block positioned. Videogastroscope was easily passed down the esophagus through the patent pylorus to the junction of the 3rd and 4th portion of the duodenum. Duodenum fairly unremarkable. Scoped pulled back in the antrum, had some gastric erythema. Cold biopsy was taken in the antrum to evaluate for H pylori. Good hemostasis noted. Scope retroflexed to the GE junction. It was fairly snug. The scope was straightened. GE junction Z line was fairly crisp. There was a short segment of some mild erythema in the distal esophagus. Cold biopsy was taken for evaluation. Good hemostasis noted. Attention then turned to colonoscopy through the anus. Digital rectal exam did not reveal any rectal masses. She did have some mucus and stool balls in the rectum on the exam. The scope was passed what seemed to be the staple line of the proximal rectum, rectosigmoid area. There were no signs of any large polyps, masses, or obstructing lesions, but again, there were some large stool balls and mucus balls on the exam. Scope was withdrawn. Attention was then turned passing the colon through the ostomy appliance in the left abdomen, slowly, carefully through colon, transverse colon, around to the ascending colon and cecum. The appendiceal orifice was not well visualized, photo documented. The scope was carefully withdrawn over the next more than 6 minutes. Prep was on the fair but limited side. Suctioned, irrigated as clear as possible, slightly limited exam for very small lesions. Otherwise, there were a couple small early polyps versus hyperplastic lesions removed with hot biopsy polypectomy in the transverse colon, another small one in the descending colon that was removed with hot biopsy polypectomy. Good hemostasis noted. She did have pancolonic diverticulosis a little bit larger on the left half of the remaining colon. Scope was withdrawn. The patient tolerated the procedure well. I went to look for family out in the waiting area. We can see her back in a couple of weeks. It is felt she is a candidate to consider ostomy takedown by her prior surgeon.
== END 2024-11-01 13:39 | disposition home or self-care (01) ==
LOC: SDC 08:37
PROVIDERS: ATTEND Surgery
DX: Z87.19 Personal history of other diseases of the digestive system (principal); K21.9 Gastro-esophageal reflux disease without esophagitis; K63.5 Polyp of colon; K57.30 Diverticulosis of large intestine without perforation or abscess without bleeding; K29.60 Other gastritis without bleeding
CPT/HCPCS: 36415; 80048; 85027; J2405; J2704